=== PATIENT | female | born 1945 | race Caucasian/White ===

== ENCOUNTER 2021-10-08 15:56 | Observation (INO) | payer MEDICARE, OTHER ==
[2021-10-08] MEDS ORDERED: Midazolam HCl 2 mg/2 ml Vial ONE (16:14)
[2021-10-08 16:16] LABS: #Eosinphils 0.1 thou/uL (0.0-0.7); #Monocytes 0.8 thou/uL (0.11-0.59); #Neutrophils 4.5 thou/uL (1.40-6.50); %Basophils 0.1 % (0.0-1.0); %Eosinophils 1.2 % (0.0-10.0); %Lymphocytes 26.8 % (21.0-51.0); %Monocytes 10.3 % (0.0-10.0); %Neutrophils 61.5 % (42.0-75.0); Hemoglobin 14.4 g/dL (12.0-16.0); Mean Corpuscular HGB CONC 34.3 g/dL (32.0-36.0); Mean Corpuscular Hemoglobin 31.1 pg (27.0-31.0); Mean Corpuscular Volume 90.6 fL (78.0-98.0); Mean Platelet Volume 8.4 fL (7.4-10.4); Platelet Count 218 thou/uL (130-400); RBC Distribution Width 13.5 % (11.5-14.5); Red Blood Cell (RBC) Count 4.64 mill/uL (4.20-5.40); White Blood Cell (WBC) Count 7.3 thou/uL (4.8-10.8)
[2021-10-08 16:27] LABS: PTT 28.3 sec (22.9-36.1); Prothrombin Time 13.4 sec (12.0-14.7)
[2021-10-08 16:30] LABS: ALT (SGPT) 11 U/L (8-55); AST (SGOT) 13 U/L (5-34); Alkaline Phosphatase 80 U/L (40-110); Anion Gap 16 mmol/L (10-20); BUN (Urea Nitrogen) 10 mg/dL (9.8-20.1); Bilirubin, Total 0.5 mg/dL (0.2-1.2); Calc. Creatinine Clearance 0 mL/min (70-130); Calcium 9.5 mg/dL (7.8-10.44); Carbon Dioxide 25 mmol/L (23-31); Chloride 104 mmol/L (98-107); Estimated GFR 85; Globulin 2.5 g/dL (2.4-3.5); Glucose 91 mg/dL (83-110); Protein, Total 6.5 g/dL (5.8-8.1); Sodium 141 mmol/L (136-145)
[2021-10-08] MEDS ORDERED: Aspirin 325 MG TAB ONE (16:41)
[2021-10-08] MEDS ORDERED: Aspirin Chewable 81 MG TAB ONE ×2 (16:43)
[2021-10-08 20:35] LABS: Hemoglobin A1c 5.1 % (4.0-6.0)
[2021-10-08] MEDS ORDERED: Atorvastatin Calcium 40 MG TAB PO SCH (21:00)
[2021-10-08 21:53] VITALS: BMI 31.1
[2021-10-09 06:11] LABS: Cardiac Risk 2.5 (Less than 4.5)
[2021-10-09] MEDS ORDERED: Aspirin 81 mg Enteric Coated Tablet PO SCH (09:00)
[2021-10-09] MEDS ORDERED: Amitriptyline HCl 25 MG TAB PO SCH ×2 (11:00→21:00)
[2021-10-09] MEDS ORDERED: Clopidogrel Bisulfate 75 MG TAB PO SCH (11:00)
[2021-10-09] MEDS ORDERED: Iopamidol-370 76% 500 ML 1 ML ONE (14:23)
[2021-10-09 16:11] VITALS: TEMP 98.8
[2021-10-09 16:13] VITALS: BP 122/74
[2021-10-10] MEDS ORDERED: Rosuvastatin 10 MG TAB PO SCH (09:00)
[2021-10-10] MEDS ORDERED: Amitriptyline HCl 25 MG TAB PO SCH (09:00)
[2021-10-10] MEDS ORDERED: Clopidogrel Bisulfate 75 MG TAB PO SCH (09:00)
== END 2021-10-09 18:15 | disposition home or self-care (01) ==
LOC: ERS 15:56 → NEURO 18:20
PROVIDERS: ADMIT Family Medicine; ATTEND Family Medicine
DX: G45.9 Transient cerebral ischemic attack, unspecified (principal); I11.9 Hypertensive heart disease without heart failure; E78.5 Hyperlipidemia, unspecified; I67.1 Cerebral aneurysm, nonruptured; F17.210 Nicotine dependence, cigarettes, uncomplicated; Z86.73 Personal history of transient ischemic attack (TIA), and cerebral infarction without residual deficits; Z79.02 Long term (current) use of antithrombotics/antiplatelets; Z79.899 Other long term (current) drug therapy; Z91.048 Other nonmedicinal substance allergy status
CPT/HCPCS: 70450; 70496; 70498; 71045; 80061; 82962; 83036; 84484; 85610; 85730; 93005; 93880; 94760; G0378 ×3; 36415; 36416; 80053; 84443; 85025; J2250; Q9967

== ENCOUNTER 2023-08-22 13:22 | Inpatient (IN) | payer MEDICARE ==
[2023-08-22 13:52] LABS: #Basophils 0.04 10x3/uL (0.0-0.2); %Basophils 0.7 % (0.0-1.0); %Lymphocytes 26.2 % (21.0-51.0); %Monocytes 7.1 % (0.0-10.0); %Neutrophils 64.8 % (42.0-75.0); Hematocrit 45.5 % (36.0-47.0); Hemoglobin 15.6 g/dL (12.0-16.0); Mean Corpuscular HGB CONC 34.3 g/dL (32.0-36.0); Mean Corpuscular Hemoglobin 29.9 pg (27.0-31.0); Mean Corpuscular Volume 87.3 fL (78.0-98.0); Mean Platelet Volume 9.9 fL (7.4-10.4); Platelet Count 246 10x3/uL (130-400); RBC Distribution Width 14.5 % (11.5-14.5); Red Blood Cell (RBC) Count 5.21 mill/uL (4.20-5.40)
[2023-08-22 14:51] LABS: ALT (SGPT) 10 U/L (8-55); AST (SGOT) 14 U/L (5-34); Albumin 4.3 g/dL (3.4-4.8); Alkaline Phosphatase 86 U/L (40-110); Anion Gap 16 mmol/L (10-20); BUN (Urea Nitrogen) 9 mg/dL (9.8-20.1); Bilirubin, Total 0.5 mg/dL (0.2-1.2); Calc. Creatinine Clearance 0 mL/min (70-130); Calcium 10.2 mg/dL (7.8-10.44); Carbon Dioxide 25 mmol/L (23-31); Chloride 104 mmol/L (98-107); Estimated GFR 91; Globulin 2.8 g/dL (2.4-3.5); Glucose 90 mg/dL (83-110); Potassium 4.1 mmol/L (3.5-5.1); Protein, Total 7.1 g/dL (5.8-8.1); Sodium 141 mmol/L (136-145)
[2023-08-22 15:12] LABS: Bacteria/HPF None Seen HPF (None Seen); Bilirubin Negative (Negative); Blood, Urine Negative (Negative); CAUTI Indications for Culture Dysuria,urgency,freq; Clarity Clear (Clear); Glucose, Urine (Dipstick) Normal (Negative); Ketone, Urine Negative (Negative); Leukocyte Negative Leu/uL (Negative); Nitrite Negative (Negative); Protein, Urine (Dipstick) Negative (Neg-Trace); RBC/HPF 0-3 HPF (0-3); Specific Gravity, Urine 1.016 (1.002-1.036); Squamous Epithelial 0-3 HPF (0-3); Urobilinogen 3 mg/dL (Less than 2); WBC/HPF 0-3 HPF (0-3); pH, Urine 7.5 (5.0-9.0)
[2023-08-22 15:21] LABS: Urine Culture Reflex No No
[2023-08-22] MEDS ORDERED: Acetaminophen 325 MG TAB PO PRN (17:50)
[2023-08-22] MEDS ORDERED: Ondansetron PF 4 MG/2 ML Vial IVP PRN (17:50)
[2023-08-22 19:28] VITALS: BMI 27.4
[2023-08-22 19:33] LABS: Troponin I 0.073 ng/mL (< 0.028)
[2023-08-22] MEDS: metroNIDAZOLE 500 MG TAB PO SCH (20:12)
[2023-08-22] MEDS: Sodium Chloride 0.9% 1,000 ML IV SCH (20:12)
[2023-08-22] MEDS: Famotidine 20 MG TAB PO SCH (20:12)
[2023-08-22] MEDS: Ciprofloxacin 500 MG TAB PO SCH (20:12)
[2023-08-22] MEDS: Albuterol 2.5 MG (3 mL) NEB NEB PRN (22:05)
[2023-08-23 00:39] LABS: Troponin I 0.087 ng/mL (< 0.028)
[2023-08-23 04:24] LABS: #Basophils 0.04 10x3/uL (0.0-0.2); %Basophils 0.8 % (0.0-1.0); %Eosinophils 2.9 % (0.0-10.0); %Lymphocytes 33.3 % (21.0-51.0); %Neutrophils 53.8 % (42.0-75.0); Hematocrit 37.5 % (36.0-47.0); Hemoglobin 12.9 g/dL (12.0-16.0); Mean Corpuscular HGB CONC 34.4 g/dL (32.0-36.0); Mean Corpuscular Volume 84.3 fL (78.0-98.0); Mean Platelet Volume 9.6 fL (7.4-10.4); Platelet Count 203 10x3/uL (130-400); RBC Distribution Width 14.3 % (11.5-14.5); Red Blood Cell (RBC) Count 4.45 mill/uL (4.20-5.40)
[2023-08-23 04:44] LABS: Anion Gap 14 mmol/L (10-20); BUN (Urea Nitrogen) 10 mg/dL (9.8-20.1); Calc. Creatinine Clearance 93 mL/min (70-130); Calcium 8.7 mg/dL (7.8-10.44); Carbon Dioxide 22 mmol/L (23-31); Chloride 108 mmol/L (98-107); Estimated GFR 93; Glucose 100 mg/dL (83-110); Potassium 3.6 mmol/L (3.5-5.1); Sodium 140 mmol/L (136-145)
[2023-08-23] MEDS: Saccharomyces boulardii 250 MG CAP PO SCH (09:12)
[2023-08-23] MEDS: Enoxaparin 40 MG (0.4 mL) SYRINGE SC SCH (09:12)
[2023-08-23 14:09] VITALS: BMI 27.4
[2023-08-23] MEDS: Meclizine HCl 12.5 MG TAB PO PRN (16:49)
[2023-08-23] MEDS ORDERED: Albuterol 200 PUFF (6.7GM INHALER) INH PRN (18:08)
[2023-08-23] MEDS ORDERED: Bisacodyl 5 MG TAB PO PRN (19:54)
[2023-08-23] MEDS: Bisacodyl 5 MG TAB PO SCH (20:20)
[2023-08-23] MEDS: Amitriptyline HCl 25 MG TAB PO SCH (20:20)
[2023-08-23] MEDS: Lactated Ringer's 500 ML IV SCH (20:21)
[2023-08-24] MEDS: Rosuvastatin 10 MG TAB PO SCH (10:16)
[2023-08-24 12:43] VITALS: BP 121/68; TEMP 97.6
== END 2023-08-24 15:47 | disposition home or self-care (01) | DRG 312 ==
LOC: ERS 13:22 → 2SW 17:21 → OBSVTOIN 08-24 09:20
PROVIDERS: ADMIT Internal Medicine; ATTEND Family Medicine
DX: I95.1 Orthostatic hypotension (principal); K52.9 Noninfective gastroenteritis and colitis, unspecified; I10 Essential (primary) hypertension; I65.22 Occlusion and stenosis of left carotid artery; H81.10 Benign paroxysmal vertigo, unspecified ear; F17.210 Nicotine dependence, cigarettes, uncomplicated; R13.12 Dysphagia, oropharyngeal phase; Z88.8 Allergy status to other drugs, medicaments and biological substances; Z79.899 Other long term (current) drug therapy; Z71.6 Tobacco abuse counseling
CPT/HCPCS: 36415; 36416; 71045; 71275; 74177; 80048; 80053; 81001; 83605; 84484; 85025; 87040; 93005; 94640; 96360; J1650; J7050; J7120; J7611